=== PATIENT | female | born 1995 | race American Indian/Alaskan Native ===

== ENCOUNTER 2020-04-22 10:06 | Outpatient (CLI) | payer OTHER | END 2020-04-22 13:34 | disposition home or self-care (01) | LOC: LAB 10:06 → APU 12:37 → LAB 13:34 | DX: O26.893 Other specified pregnancy related conditions, third trimester (principal); Z67.11 Type A blood, Rh negative; Z3A.28 28 weeks gestation of pregnancy | CPT/HCPCS: 86850; 86900; 86901; 96372; J2790 ==

== ENCOUNTER 2020-06-15 17:17 | Inpatient (IN) | payer BC, OTHER ==
[2020-06-15] MEDS ORDERED: fentaNYL 100 MCG/2 ML INJ IV PRN (18:18)
[2020-06-15] MEDS ORDERED: ePHEDrine SULFATE 50 MG/1 ML INJ IV PRN (18:18)
--- NOTE | 2020-06-15 18:32 | History and Physical Report ---
History of Present Illness Date of examination: 06/15/20 Date of admission: 06/15/2020 Chief complaint: Leaking of water for 3 days History of present illness: 24 year old comes in to L&D complaining of leaking of water from vagina for past 3 days. She reports irregular contractions for the past week. She denies vaginal bleeding. Patient reports active movement. Patient states she receives care at [facility]. No records are available. Patient states her EDC is 07/15/2020. Patient denies any complications during the . labs drawn upon admission. Ultrasound ordered for EDC/EGA, location of placenta, AJITH, and presentation. Will request records from office when LC office opens in the morning. Past History Past Medical History: other (history of tooth infection for which she has been taking Amoxicillin at home) Past Surgical History: no surgical history [facility] History: chlamydia (history of chlamydia several years ago, treated and cured). denies: gonorrhea, hepatitis B, hepatitis C, herpes, HIV, syphilis, trichomonas Family/Genetic History: diabetes, heart disease, Down's syndrome (sarcoidosis) Social history: single, full code, other (denies abuse). denies: smoking, alcohol abuse, prescription drug abuse, IV drug use - Obstetrical History Expected Date of Delivery: 07/15/20 Actual Gestation: 35 Week(s) 5 Day(s) : 1 Para: 0 Hx # Term Pregnancies: 0 Number of Pregnancies: 0 Spontaneous Abortions: 0 Induced : 0 Number of Living Children: 0 Medications and Allergies Allergies Allergy/AdvReac Type Severity Reaction Status Date / Time No Known Allergies Allergy Verified 04/22/20 12:57 Active Meds: Active Medications Betamethasone Acet/Betameth SodPhos (Betamet Acet/Betamet Na Ph 6 Mg/Ml Inj 5 Ml Mdv) 12 mg IM Q24HR ROBI Stop: 06/16/20 10:01 Ephedrine Sulfate (Ephedrine Sulfate 50 Mg/1 Ml Inj) 10 mg IV Q2M PRN PRN Reason: Hypotension Fentanyl (Fentanyl 100 Mcg/2 Ml Inj) 100 mcg IV Q2H PRN PRN Reason: Pain,Severe (7-10) LABOR PAIN Lactated Ringer's (Lactated Ringers) 1,000 mls @ 125 mls/hr IV DIRECT ROBI Lidocaine (Lidocaine (2%) 20 Mg/1 Ml Vial 20 Ml Mdv) 20 ml INFILTRATI ONCE ONE Stop: 06/15/20 18:19 Review of Systems All systems: negative (leaking of fluid from vagina) - Vital Signs Vital signs: Vital Signs Pulse BP Pulse Ox 76 129/74 100 06/15/20 18:18 06/15/20 18:18 06/15/20 18:18 Temp Pulse Resp BP Pulse Ox 98.9 F 88 16 129/74 100 06/15/20 18:19 06/15/20 18:23 06/15/20 18:19 06/15/20 18:19 06/15/20 18:23 - Physical Exam Abdomen: Positive: normal appearance, soft. Negative: distention, tenderness, guarding, rigidity Genitourinary (Female): Positive: normal external genitalia, normal perenium. Negative: perineal/vulvar lesions Vagina: Positive: other (moderate amount of clear fluid seen leaking from vagina, + nitrazine) Anus/Rectum: Positive: normal perianal skin Extremities: Positive: normal. Negative: tenderness, edema - Obstetrical FHR: category 1 Uterine Contraction Monitor Mode: External Cervical Dilatation: 2 Cervical Effacement Percentage: 80 station: -1 Uterine Contraction Pattern: Irregular Uterine Contraction Intensity: Mild Results All other labs normal. Assessment and Plan A: at 35 weeks, 5 days gestation. PPROM. No records available. GBS unknown. P: Admit. Continuous EFM. IV Ampicillin 2 grams IV every 6 hours and Erythromycin 250 mg po every 6 hours. Celestone IM Q24 hrs. times 2 doses. Request/obtain records. labs drawn and US ordered for EGA/EDC, location of placenta, presentation, and AJITH. IV hydration. Consulted with Dr. Pelayo re: this patient and he states he is in agreement with POC for EFM, US, steroids, and antibiotics while awaiting records. Discussed this plan with patient and nurse.
[2020-06-15] MEDS ORDERED: BETAMET ACET/BETAMET NA PH 6 MG/ML INJ 5 ML MDV IM SCH (19:00)
[2020-06-15] MEDS ORDERED: AMPICILLIN/NS 2 GM/100 ML 2 GM/100 ML BAG IV SCH (19:00)
[2020-06-15] MEDS ORDERED: LIDOCAINE (2%) 20 MG/1 ML VIAL 20 ML MDV INFILTRATI ONE (19:18)
[2020-06-15 19:23] LABS: Hematocrit 35.4 % (30.3-42.9); Hemoglobin 11.8 gm/dl (10.1-14.3); Mean Corpuscular HGB Conc 33 % (30-34); Mean Corpuscular Volume 89 fl (79-97); Platelet Count 166 K/mm3 (140-440); Red Blood Count 3.99 M/mm3 (3.65-5.03); Red Cell Distribution Width 13.4 % (13.2-15.2)
[2020-06-15] MEDS ORDERED: LACTATED RINGERS 1,000 ML IV ONE (19:46)
[2020-06-15 19:49] LABS: Hepatitis C Virus Antibody Non-Reactive (NonReactive)
[2020-06-15] MEDS ORDERED: TERBUTALINE 1 MG/1 ML INJ SUB-Q ONE (19:59)
--- NOTE | 2020-06-15 20:13 | Event Note ---
Date: 06/15/20 Preliminary ultrasound report shows EGA of 34 weeks gestation with EDC of 07/27/20; "small hypoechoic area behind placenta measuring 1.9 by 1.5 cm, likely retroplacental hematoma, no placental abruption seen at this time" per US tech report. Called Dr. Pelayo and discussed ultrasound results with him, including all of the above. Dr. Pelayo states OK to continue current managment of EFM, steroids, IV antibiotics, and observation as long as FHR tracing remains reassuring.
[2020-06-15] MEDS: LACTATED RINGERS 1,000 ML IV SCH (20:36)
--- NOTE | 2020-06-15 22:02 | Ultrasound Report ---
ULTRASOUND OBSTETRIC INDICATION / CLINICAL INFORMATION: EGA/EDC, location of placenta, presentation, AJITH. Clinical Gestational Age (GA): 35 weeks 5.days TECHNIQUE: Transabdominal. COMPARISON: None available. FINDINGS: There is a single intrauterine . Biparietal Diameter = 8.5 cm = 34 weeks 1.days Head Circumference = 30.7 cm = 34 weeks. 1 days Abdominal Circumference = 29.4 cm = 33 weeks. 2 days Femur Length = 6.7 cm = 34 weeks 2.days Average Ultrasound Age (AUA) = 34 weeks 0.days Heart Rate: 137 beats per minute. Estimated Weight in grams (if calculated): 2272 Estimated Weight Growth Percentile (if calculated): 91 Position: cephalic. Placenta: Posterior, fundal, grade 2 and free of the os. Amniotic Fluid Volume: normal Amniotic Fluid Index (AJITH) in cm (if calculated): 10.9. Maternal Adnexa: No significant abnormality. Additional findings: Hypoechoic area posterior to the placenta measuring 1.9 x 1.5 cm could represent a placental mendez versus retroplacental hematoma. No evidence of abruption. IMPRESSION: 1. Single, living intrauterine with estimated sonographic age of 34 weeks. 0 days 2. 1.9 x 1.5 cm hypoechoic area involving the placenta/posterior to the placenta is favored to repres ent a retroplacental hematoma versus possibly a placental mendez. No abruption is noted. Signer Name: Baljeet Sainz MD Signed: 06/15/2020 9:58 PM Workstation Name: [id number]
[2020-06-15] MEDS ORDERED: ONDANSETRON 4 MG/2 ML INJ IV PRN (22:06)
[2020-06-15] MEDS: ERYTHROMYCIN BASE 250 MG CAPSULE DR PO SCH (23:00)
[2020-06-16] MEDS ORDERED: fentaNYL 100 MCG/2 ML INJ ONE (04:11)
[2020-06-16] MEDS: LACTATED RINGERS 1,000 ML IV SCH ×2 (04:22→07:40)
--- NOTE | 2020-06-16 04:22 | Event Note ---
Date: 06/16/20 SVE 0.
[2020-06-16] MEDS ORDERED: ePHEDrine SULFATE 50 MG/1 ML INJ ONE (04:29)
[2020-06-16] MEDS ORDERED: NALOXONE 2 MG/2 ML INJ IV PRN (04:37)
[2020-06-16] MEDS ORDERED: ePHEDrine SULFATE 50 MG/1 ML INJ IV PRN (04:37)
[2020-06-16] MEDS ORDERED: NalbUPHINE 10 MG/1 ML INJ IV PRN (04:37)
[2020-06-16] MEDS ORDERED: diphenhydrAMINE 50 MG/ML VIAL IV PRN (04:37)
[2020-06-16] MEDS ORDERED: fentaNYL-BUPIV 2 MCG/ML-0.125% 200 MCG/100 ML BAG EPIDURAL SCH (05:00)
--- NOTE | 2020-06-16 05:08 | Anesthesia Consultation ---
Anesthesia Consult and Med Hx Date of service: 06/16/20 - Airway Anesthetic Teeth Evaluation: Good ROM Head & Neck: Adequate Mental/Hyoid Distance: Adequate Mallampati Class: Class I Intubation Access Assessment: Good - Pulmonary Exam CTA: Yes - Cardiac Exam Cardiac Exam: RRR - Pre-Operative Health Status ASA Pre-Surgery Classification: ASA2 Proposed Anesthetic Plan: Epidural, Spinal - Pulmonary Hx Smoking: No Hx Asthma: No COPD: No Hx Pneumonia: No Hx Sleep Apnea: No - Cardiovascular System Hx Hypertension: No Hx Heart Attack/AMI: No Hx Angina: No - Central Nervous System Hx Seizures: No Hx Psychiatric Problems: No - Gastrointestinal Hx Gastroesophageal Reflux Disease: No - Endocrine Hx Renal Disease: No Hx End Stage Renal Disease: No Hx Insulin Dependent Diabetes: No Hx Non-Insulin Dependent Diabetes: No Hx Hypothyroidism: No Hx Hyperthyroidism: No - Hematic Hx Anemia: Yes Hx Sickle Cell Disease: No - Other Systems Hx Alcohol Use: No
--- NOTE | 2020-06-16 05:09 | Progress Note ---
Labor Epidural - Labor Epidural Start Time: 04:45 Stop Time: 05:00 Performed by:: SCARLET CHAUHAN Procedure: Patient is requesting combined spinal epidural for labor and pain. H&P, labs were reviewed. All questions and concerns were answered. Informed consent was obtained. Timeout performed. Patient in sitting position on side of bed. Sterile prep and drape was performed. 3 mL 1% lidocaine skin wheal at L [3]-L [4]. 18-gauge Les epidural needle advanced to [id number] using air technique, [5]. 27-gauge spinal needle advanced, positive free-flowing CSF. Spinal dose of [Marcaine 3.8mg]. Epidural catheter advanced to [10] cm. [negative] Aspiration, [negative] test dose. Sterile dressing applied. Patient tolerated procedure well.
[2020-06-16] MEDS: ERYTHROMYCIN BASE 250 MG CAPSULE DR PO SCH (05:20)
--- NOTE | 2020-06-16 06:42 | Event Note ---
Date: 06/16/20 SVE /0.
[2020-06-16] MEDS ORDERED: BUPIVACAINE/PF (0.25%) 2.5 MG/ML 10 ML VIAL INFILTRATI ONE (06:45)
[2020-06-16] MEDS ORDERED: MINERAL OIL 30 ML ORAL LIQD ONE (07:53)
[2020-06-16] MEDS ORDERED: AMPICILLIN/NS 1 GM/50 ML 1 GM/50 ML BAG IV SCH (08:00)
[2020-06-16] MEDS ORDERED: OXYTOCIN DRIP 30,000 MILLIUNITS/500 ML BAG IV ONE ×2 (08:08→08:16)
[2020-06-16] MEDS ORDERED: PROMETHAZINE 25 MG TAB PO PRN (08:24)
--- NOTE | 2020-06-16 08:42 | Procedure Note ---
OB Delivery Note - Delivery Date of Delivery: 06/16/20 Surgeon: AI QUINTANA Estimated blood loss: 200cc - Vaginal Delivery presentation: vertex Intrapartum events: labor-<37 weeks, other(please specify) (PPROM, extended ROM (3 days at home)) Delivery induction: none Delivery monitor: external FHT, external uterine Route of delivery: Delivery placenta: spontaneous Delivery cord: nuchal cord, 3 umbilical vessels, other (thin cord) Episiotomy: midline Delivery repair: vicryl Anesthesia: epidural Delivery comments: Spontaneous vaginal delivery at 08:06 of liveborn male weighing 4 lb. 15 oz. over 2nd degree midline episiotomy with apgars of 8/9. Prolonged FHR deceleration just prior to delivery. was atraumatic; head delivered in OT position. Tight nuchal cord, manually reduced. Thin cord. Baby placed skin to skin with mom immediately after delivery. Spontaneous cry and respirations. Baby dried with warm towels and bulb suctioned. 3 vessel cord double clamped and cut. [facility] for evaluation by NICU team who attended delivery. Cord blood obtained. Spontaneous delivery of intact placenta and membranes by fuentes mechanism. Pitocin to IV fluids after delivery of placenta. EBL 200 cc. Fundus firm and midline. 2nd degree midline episiotomy repaired with 2-0 vicryl in usual sterile fashion. No other lacerations noted. Vaginal sweep negative. Sponge count correct. Baby taken to NICU due to prematurity.
[2020-06-16] MEDS ORDERED: LANOLIN/ZINC/DIMETHICONE (LANSINOH) 7 GM TP PRN (09:00)
[2020-06-16] MEDS ORDERED: PROMETHAZINE 25 MG RECT SUPP PR PRN (09:00)
[2020-06-16] MEDS ORDERED: diphenhydrAMINE 25 MG CAP PO PRN (09:00)
[2020-06-16] MEDS ORDERED: ONDANSETRON 4 MG/2 ML INJ IV PRN (09:00)
[2020-06-16] MEDS ORDERED: WITCH HAZEL/ GLYCERIN PAD TP PRN (09:00)
[2020-06-16 15:02] LABS: Bilirubin,Urine NEG (Negative); Blood,Urine LG (Negative); Color,Urine Red (Yellow); Urobilinogen,Urine < 2.0 mg/dL (<2.0)
[2020-06-16 15:03] LABS: RBC,Urine > 182.0 /HPF (0.0-6.0)
[2020-06-16 15:06] LABS: Amphetamine Screen,Urine Negative; Benzodiazepines Screen,Urine Negative; Cocaine Screen,Urine Negative; Methadone Screen,Urine Negative; Opiate Screen,Urine Negative
[2020-06-16 15:14] LABS: Cannabinoid Screen,Urine PRESUMPTIVE POSITIVE
[2020-06-16] MEDS ORDERED: BENZOCAINE/MENTHOL 20/0.5% TOP SPRAY 56 GM TP PRN (16:00)
[2020-06-16] MEDS: IBUPROFEN 600 MG TAB PO SCH ×2 (16:12→23:03)
[2020-06-16] MEDS ORDERED: MAGNESIUM HYDROXIDE (MOM) ORAL LIQD UDC PO PRN (22:00)
[2020-06-17] MEDS: IBUPROFEN 600 MG TAB PO SCH ×3 (06:10→18:14)
[2020-06-17 08:32] LABS: Hematocrit 31.7 % (30.3-42.9); Hemoglobin 10.5 gm/dl (10.1-14.3)
--- NOTE | 2020-06-17 11:33 | Discharge Summary ---
Providers - Providers Date of Admission: 06/15/20 18:18 Date of discharge: 06/18/20 Attending physician: COLLIN KAPLAN JR, MD 06/16/20 17:49 Consult to Case Management [CONS] Routine Services Needed at Discharge: Food Service Specialist Notified:: case mgmt Comment:: Positive THC Primary care physician: COLLIN KAPLAN JR, MD Hospitalization Reason for admission: rupture of membranes Episiotomy: midline (healing as expected) Other procedures: none complications: none Discharge diagnosis: delivery Hagerman baby: male Hospital course: See admission H & P; OB delivery summary and PP progress notes Condition at discharge: Stable Disposition: DC-01 TO HOME OR SELFCARE - Discharge Diagnoses (1) Status post normal vaginal delivery Status: Acute (2) Anemia Status: Acute Qualifiers: Anemia type: other cause Other causes of anemia: acute posthemorrhagic Qualified Code(s): D62 - Acute posthemorrhagic anemia Comment: Asymptomatic Plan - Discharge Medications Prescriptions: Docusate Sodium [Colace CAP] 100 mg PO BID 14 Days #28 capsule Ibuprofen [Motrin 600 MG tab] 600 mg PO Q8H 14 Days #42 tablet - Provider Discharge Summary Activity: routine, no sex for 6 weeks, no heavy lifting 4 weeks, no strenuous exercise Diet: other (Iron rich diet) Instructions: routine Additional instructions: [] Smoking cessation referral if applicable(refer to patient education folder for contact #) [] Refer to [facility]'s [facility] Booklet Call your doctor immediately for: * Fever > 100.5 * Heavy vaginal bleeding ( >1 pad per hour) * Severe persistent headache * Shortness of breath * Reddened, hot, painful area to leg or breast * Drainage or odor from incision. * Keep episiotomy site clean and dry at all times and follow doctor's instructions regarding bathing/showering - Follow up plan Follow up: COLLIN KAPLAN JR, MD [Primary Care Provider] - 6 Weeks
[2020-06-17] MEDS: DOCUSATE SODIUM 100 MG CAP PO SCH (15:44)
--- NOTE | 2020-06-17 17:14 | Post Anesthesia Evaluation ---
- Post Anesthesia Evaluation Patient Participated: Yes Airway Patent: Yes Stable Respiratory Function: Yes Nausea/Vomiting: No Temp > 96.8F: Yes Pain Manageable: Yes Adequeate Hydration: Yes Anesthesia Complications: No Block Receding Appropriately: Yes
[2020-06-18] MEDS: IBUPROFEN 600 MG TAB PO SCH ×3 (00:09→14:57)
[2020-06-18] MEDS: DOCUSATE SODIUM 100 MG CAP PO SCH ×2 (00:09→14:56)
[2020-06-18 17:15] VITALS: BP 104/61
== END 2020-06-18 18:38 | disposition home or self-care (01) | DRG 806 ==
LOC: TRG 17:17 → APU 17:17 → LD 18:18 → TRG 20:17 → OB 06-16 10:50
PROVIDERS: ADMIT Obstetrics & Gynecology; ATTEND Obstetrics & Gynecology
PROC: 10E0XZZ Delivery of Products of Conception, External Approach (ICD-10-PCS; principal; 2020-06-16)
PROC: 0W8NXZZ Division of Female Perineum, External Approach (ICD-10-PCS; 2020-06-16)
PROC: 3E0R3BZ Introduction of Anesthetic Agent into Spinal Canal, Percutaneous Approach (ICD-10-PCS; 2020-06-16)
PROC: 00HU33Z Insertion of Infusion Device into Spinal Canal, Percutaneous Approach (ICD-10-PCS; 2020-06-16)
PROC: 30233S1 Transfusion of Nonautologous Globulin into Peripheral Vein, Percutaneous Approach (ICD-10-PCS; 2020-06-17)
DX: O42.113 Preterm premature rupture of membranes, onset of labor more than 24 hours following rupture, third trimester (principal); D62 Acute posthemorrhagic anemia; Z37.0 Single live birth; O99.02 Anemia complicating childbirth; Z3A.35 35 weeks gestation of pregnancy; Z20.822 Contact with and (suspected) exposure to COVID-19; Z83.3 Family history of diabetes mellitus; Z82.49 Family history of ischemic heart disease and other diseases of the circulatory system; Z87.898 Personal history of other specified conditions
CPT/HCPCS: 36415; 76816; 80307; 81001; 85014; 85018; 85027; 85460; 85461; 86592; 86706; 86762; 86803; 86850; 86870; 86900; 86901; 87086; 87806; 88307; G0378; J0290; J0702; J2790; J3105; J7120; U0003